=== PATIENT | female | born 1980 | race Caucasian/White ===

== ENCOUNTER 2017-02-22 15:10 | Emergency (ER) | payer BC, OTHER ==
--- NOTE | ~2017-02-22 | CR211 ---
[facility] A Service of [facility] RADIOLOGY TEXT RESULTS PATIENT: VENKATA BELL LOCATION: CFTX : 80 UNIT #: [id number] AGE: [address]: May Craven SEX: F ORDER DR: [id number] [id number] [facility]. [place], [place] [address] [id number] MR#: [id number] Acc #: [id number] NAME: VENKATA BELL : 1980 SEX: F STUDY DATE/TIME: 02/22/2017 16:05 UNIT: CFTX ROOM: STUDY DESCRIPTION: CR Ribs Uni 2 View W PA Ch Rt Attending Physician: May Craven P.A.-C. Ordering Physician: May Craven P.A.-C. Primary Care Physician: Kelvin Hobson M.D. MEDICAL IMAGING REPORT This report is preliminary unless electronic signature is present EXAM Frontal chest and right rib series, 02/22/2017 INDICATIONS 36-year-old female with rib pain and cough since this morning. No known injury. Short of breath. TECHNIQUE Frontal chest and 3 views right ribs. COMPARISON 03/06/2015 FINDINGS Cardiac silhouette is within normal limits. The vascularity is normal. Lungs are clear, no effusion, no pneumothorax. Chronic-appearing subtle rib deformities involve the posterior right seventh and eighth ribs. No definite acute fracture. IMPRESSION 1. Chronic-appearing rib deformities of the posterior right seventh and eighth ribs, otherwise, negative frontal chest and right rib series. Dictated by... Boris Carr M.D. THIS IS AN ELECTRONICALLY VERIFIED REPORT Boris Carr M.D. at 02/23/2017 1:25 PM SHERITA/ellen TD: 02/22/2017 22:14 [facility] A Service [facility] RADIOLOGY TEXT RESULTS PATIENT: VENKATA BELL LOCATION: [place] : 80 UNIT #: [id number] AGE: [address]: May Craven SEX: F ORDER DR: JOB #: [id number] MEDICAL IMAGING REPORT Page 1 of 1 COPY
[~2017-02-22 15:10] MED LIST: AMITRYPTYLINE PO; ASPIRIN PO; AUGMENTIN PO; BACLOFEN10 MG PO; BUSPAR PO; CELEXA PO; CIPRO PO; DEPO-PROVER150 MG/ML INJ; DIAZEPAM PO; DICYCLOMINE HCL20 MG PO; EC-NAPROSYN500 MG PO; FLAGYL PO; IBUPROFEN PO; IBUPROFEN800 MG PO; MEDROL PO; NEURONTIN300 MG PO; NORCO 10/325 TA1 TAB PO; NORCO 5/325 TAB1 TAB PO; PHENERGAN PO; PROTONIX PO; TYLOX 5/500 CAP1 CAP PO; ULTRAM PO; VICODIN 5/500 T1 TAB PO; VOLTAREN75 MG PO; ZOLOFT PO; ZTUSS EXPECTOR480 ML PO; [UNRECOGNIZED DRUG - REMARK] PO
[2017-02-22 16:24] LABS: URINE SOURCE CLEAN CATCH
[2017-02-22 16:32] LABS: URINE APPEARANCE CLEAR; URINE BILIRUBIN NEG (NEG); URINE BLOOD NEG (NEG); URINE COLOR YELLOW; URINE GLUCOSE NEG (NEG); URINE KETONE NEG (NEG); URINE LEUKOCYTE ESTERASE NEG (NEG); URINE NITRATE NEG (NEG); URINE PROTEIN NEG (NEG); URINE SPECIFIC GRAVITY 1.027 (1.003-1.035)
[2017-02-22 16:37] LABS: CULTURE INDICATED? NO
== END 2017-02-22 17:03 | disposition home or self-care (01) ==
LOC: CFTX 15:10 → CED 15:10 → CFTX 15:44
PROVIDERS: Physician Assistant
DX: S22.41XA Multiple fractures of ribs, right side, initial encounter for closed fracture (principal); I10 Essential (primary) hypertension; Z90.49 Acquired absence of other specified parts of digestive tract; X58.XXXA Exposure to other specified factors, initial encounter; Y92.009 Unspecified place in unspecified non-institutional (private) residence as the place of occurrence of the external cause
CPT/HCPCS: 71101; 81003; 96372; 99284; J1885